=== PATIENT | female | born 1945 | race Caucasian/White ===

== ENCOUNTER 2019-10-09 14:07 | Inpatient (IN) ==
[2019-10-09 18:50] LABS: Basophils # 0.1 10*3/uL (0.0-0.2); Eosinophils # 0.3 10*3/uL (0.0-0.87); Eosinophils % 2.9 % (0.00-10.9); Hematocrit 21.7 VOL% (35.7-47.0); Immature Granulocytes % 0.4 %; Immature Granulocytes Absolute 0.04 #; Lymphocytes # 4.7 10*3/uL (1.4-4.0); Lymphocytes % 43.9 % (21.3-54.2); Mean Corpuscular HGB Conc 28.1 GM/DL (32-36); Mean Corpuscular Volume 86.1 FL (87-102); Mean Platelet Volume 8.9 FL (9.6-12.0); Monocytes % 11.7 % (1.7-12.7); Neutrophils % 40.1 % (38.7-73.9); Platelet Count 349 T/CUMM (130-400); Red Blood Count 2.52 MC/CUMM (3.8-5.5); Red Cell Distribution Width 19.7 % (9.3-17.3); White Blood Count 10.7 T/CUMM (4-12)
[2019-10-09 18:56] LABS: Hemoglobin 6.1 GM/DL (12.0-16.0)
[2019-10-09 19:12] LABS: Albumin 3.1 G/DL (3.4-5.0); Anisocytosis Slight; Bilirubin,Total 0.6 MG/DL (0.2-1.0); Calcium 8.3 MG/DL (8.5-10.1); Eosinophils 3 % (0-10); Hypochromasia 1+; Lymphocytes 39 % (20-55); Osmolality,Calculated 280.3 MOS/KG (273-304); Platelet Estimate Normal; Polychromasia Slight; Segmented Neutrophils 49 % (50-85); Target Cells 1+; Total Cells Counted 100
[2019-10-09 19:13] LABS: Microcytosis Slight; Reactive Lymphocytes 1+
[2019-10-09] MEDS ORDERED: ONDANSETRON 4 MG/2 ML VIAL IV PRN (19:45)
[2019-10-09] MEDS ORDERED: ACETAMINOPHEN 325 MG TABLET PO PRN (19:45)
[2019-10-09] MEDS ORDERED: ACETAMINOPHEN 500 MG TABLET PO ONE ×2 (22:11→22:17)
[2019-10-09] MEDS ORDERED: FUROSEMIDE 20 MG/2 ML VIAL IV ONE (22:11)
[2019-10-09] MEDS ORDERED: diphenhydrAMINE 50 MG/1 ML VIAL IV ONE ×2 (22:13→22:16)
[2019-10-09] MEDS ORDERED: SODIUM CHLORIDE 0.9% 1,000 ML IV PRN (22:48)
[2019-10-10] MEDS ORDERED: diphenhydrAMINE 50 MG/1 ML VIAL IV ONE (05:30)
[2019-10-10] MEDS ORDERED: FUROSEMIDE 20 MG/2 ML VIAL IV ONE (05:30)
[2019-10-10] MEDS ORDERED: ACETAMINOPHEN 500 MG TABLET PO ONE (05:30)
[2019-10-10] MEDS: DEXTROSE 5% NACL 0.45% 1,000 ML IV SCH ×2 (06:07→11:53)
[2019-10-10] MEDS ORDERED: NITROGLYCERIN SL 0.4 MG TABLET SL PRN (06:20)
[2019-10-10] MEDS: LEVOTHYROXINE 100 MCG TABLET PO SCH (07:17)
[2019-10-10] MEDS ORDERED: PANTOPRAZOLE 40 MG VIAL IV SCH (09:00)
[2019-10-10 10:00] LABS: Basophils # 0.1 10*3/uL (0.0-0.2); Basophils % 1.5 % (0.0-0.8); Eosinophils # 0.3 10*3/uL (0.0-0.87); Hematocrit 28.6 VOL% (35.7-47.0); Hemoglobin 8.7 GM/DL (12.0-16.0); Immature Granulocytes % 0.3 %; Immature Granulocytes Absolute 0.02 #; Lymphocytes # 2.6 10*3/uL (1.4-4.0); Mean Corpuscular HGB Conc 30.4 GM/DL (32-36); Mean Corpuscular Volume 86.4 FL (87-102); Mean Platelet Volume 8.9 FL (9.6-12.0); Monocytes % 10.5 % (1.7-12.7); Neutrophils % 44.7 % (38.7-73.9); Platelet Count 294 T/CUMM (130-400); Red Blood Count 3.31 MC/CUMM (3.8-5.5); Red Cell Distribution Width 17.6 % (9.3-17.3); White Blood Count 6.8 T/CUMM (4-12)
[2019-10-10] MEDS: PANTOPRAZOLE 40 MG TABLET PO SCH (10:25)
[2019-10-10 10:29] LABS: Albumin 2.9 G/DL (3.4-5.0); Calcium 8.1 MG/DL (8.5-10.1); Osmolality,Calculated 280.1 MOS/KG (273-304); Total Protein 5.8 G/DL (6.4-8.3)
[2019-10-10] MEDS: SIMVASTATIN 10 MG TABLET PO SCH (21:47)
[2019-10-10] MEDS: SERTRALINE 50 MG TABLET PO SCH (21:47)
[2019-10-11] MEDS: DEXTROSE 5% NACL 0.45% 1,000 ML IV SCH ×4 (00:09→23:05)
[2019-10-11 04:52] LABS: Basophils # 0.1 10*3/uL (0.0-0.2); Basophils % 1.6 % (0.0-0.8); Eosinophils # 0.4 10*3/uL (0.0-0.87); Eosinophils % 7.3 % (0.00-10.9); Hematocrit 26.6 VOL% (35.7-47.0); Hemoglobin 8.1 GM/DL (12.0-16.0); Immature Granulocytes % 0.2 %; Immature Granulocytes Absolute 0.01 #; Lymphocytes # 2.2 10*3/uL (1.4-4.0); Lymphocytes % 39.5 % (21.3-54.2); Mean Corpuscular HGB Conc 30.5 GM/DL (32-36); Mean Corpuscular Volume 85.5 FL (87-102); Mean Platelet Volume 9.1 FL (9.6-12.0); Monocytes % 11.6 % (1.7-12.7); Neutrophils % 39.8 % (38.7-73.9); Platelet Count 290 T/CUMM (130-400); Red Blood Count 3.11 MC/CUMM (3.8-5.5); Red Cell Distribution Width 17.8 % (9.3-17.3); White Blood Count 5.6 T/CUMM (4-12)
[2019-10-11 05:21] LABS: Burr Cells Few; Hypochromasia 2+; Ovalocytes 1+; Platelet Estimate Normal; Polychromasia Few
[2019-10-11] MEDS: LEVOTHYROXINE 100 MCG TABLET PO SCH (05:39)
[2019-10-11 05:46] LABS: Albumin 2.6 G/DL (3.4-5.0); Bilirubin,Total 1.8 MG/DL (0.2-1.0); Calcium 8.2 MG/DL (8.5-10.1); Osmolality,Calculated 280.1 MOS/KG (273-304); Total Protein 5.2 G/DL (6.4-8.3)
[2019-10-11] MEDS: PANTOPRAZOLE 40 MG TABLET PO SCH (10:21)
[2019-10-11] MEDS: SERTRALINE 50 MG TABLET PO SCH (20:58)
[2019-10-11] MEDS: SIMVASTATIN 10 MG TABLET PO SCH (20:58)
[2019-10-11] MEDS ORDERED: SODIUM CHLORIDE 0.9% 1,000 ML IV PRN (21:52)
[2019-10-12] MEDS: LEVOTHYROXINE 100 MCG TABLET PO SCH (05:54)
[2019-10-12] MEDS: DEXTROSE 5% NACL 0.45% 1,000 ML IV SCH ×3 (07:50→23:08)
[2019-10-12] MEDS ORDERED: LIDOCAINE 2% 5 ML VIAL ONE (09:00)
[2019-10-12] MEDS ORDERED: propofoL 200 MG/20 ML VIAL IV ONE (09:00)
[2019-10-12 09:18] LABS: Basophils # 0.1 10*3/uL (0.0-0.2); Basophils % 1.4 % (0.0-0.8); Eosinophils # 0.4 10*3/uL (0.0-0.87); Eosinophils % 5.4 % (0.00-10.9); Hematocrit 35.5 VOL% (35.7-47.0); Hemoglobin 11.3 GM/DL (12.0-16.0); Immature Granulocytes % 0.4 %; Immature Granulocytes Absolute 0.03 #; Lymphocytes # 2.3 10*3/uL (1.4-4.0); Lymphocytes % 32.5 % (21.3-54.2); Mean Corpuscular HGB Conc 31.8 GM/DL (32-36); Mean Corpuscular Volume 84.9 FL (87-102); Mean Platelet Volume 9.1 FL (9.6-12.0); Monocytes % 12.8 % (1.7-12.7); Neutrophils % 47.5 % (38.7-73.9); Platelet Count 304 T/CUMM (130-400); Red Blood Count 4.18 MC/CUMM (3.8-5.5); Red Cell Distribution Width 17.7 % (9.3-17.3); White Blood Count 7.2 T/CUMM (4-12)
[2019-10-12] MEDS: LACTATED RINGERS 1,000 ML IV SCH (10:05)
[2019-10-12] MEDS: FERROUS SULFATE 325 MG TABLET PO SCH (10:27)
[2019-10-12] MEDS: PANTOPRAZOLE 40 MG TABLET PO SCH (10:27)
[2019-10-12 11:51] LABS: Albumin 2.9 G/DL (3.4-5.0); Bilirubin,Total 2.2 MG/DL (0.2-1.0); Calcium 8.2 MG/DL (8.5-10.1); Osmolality,Calculated 278.1 MOS/KG (273-304); Total Protein 5.9 G/DL (6.4-8.3)
[2019-10-12] MEDS ORDERED: BISACODYL 5 MG TABLET PO ONE (12:00)
[2019-10-12] MEDS ORDERED: POLYETHYLENE GLYCOL POWDER 255 GM BOTTLE PO ONE (18:00)
[2019-10-12] MEDS: SIMVASTATIN 10 MG TABLET PO SCH (23:09)
[2019-10-12] MEDS: SERTRALINE 50 MG TABLET PO SCH (23:09)
[2019-10-13] MEDS: DEXTROSE 5% NACL 0.45% 1,000 ML IV SCH ×2 (05:35→13:23)
[2019-10-13] MEDS: LEVOTHYROXINE 100 MCG TABLET PO SCH (05:35)
[2019-10-13 06:09] LABS: Basophils # 0.1 10*3/uL (0.0-0.2); Basophils % 1.3 % (0.0-0.8); Eosinophils # 0.4 10*3/uL (0.0-0.87); Hematocrit 30.1 VOL% (35.7-47.0); Hemoglobin 8.6 GM/DL (12.0-16.0); Immature Granulocytes % 0.4 %; Immature Granulocytes Absolute 0.02 #; Lymphocytes # 1.9 10*3/uL (1.4-4.0); Lymphocytes % 35.3 % (21.3-54.2); Mean Corpuscular HGB Conc 28.6 GM/DL (32-36); Mean Corpuscular Volume 95.3 FL (87-102); Mean Platelet Volume 9.6 FL (9.6-12.0); Monocytes % 12.2 % (1.7-12.7); Neutrophils % 43.8 % (38.7-73.9); Platelet Count 239 T/CUMM (130-400); Red Blood Count 3.16 MC/CUMM (3.8-5.5); Red Cell Distribution Width 19.5 % (9.3-17.3); White Blood Count 5.3 T/CUMM (4-12)
[2019-10-13 06:13] LABS: Anisocytosis 1+; Microcytosis 1+
[2019-10-13 06:14] LABS: Acanthocytes Few; Hypochromasia 1+; Ovalocytes Slight; Platelet Estimate Normal; Polychromasia Slight
[2019-10-13 08:22] LABS: Calcium 8.3 MG/DL (8.5-10.1); Osmolality,Calculated 277.3 MOS/KG (273-304)
[2019-10-13] MEDS ORDERED: propofoL 200 MG/20 ML VIAL IV ONE (09:00)
[2019-10-13] MEDS ORDERED: LIDOCAINE 2% 5 ML VIAL ONE (09:00)
[2019-10-13] MEDS: PANTOPRAZOLE 40 MG TABLET PO SCH (09:13)
[2019-10-13] MEDS: FERROUS SULFATE 325 MG TABLET PO SCH (09:13)
[2019-10-13] MEDS: LACTATED RINGERS 1,000 ML IV SCH (09:30)
[2019-10-13 16:00] VITALS: BP 137/59
== END 2019-10-13 18:00 | disposition home or self-care (01) | DRG 378 ==
LOC: N.EDINP 14:07 → N.ED 14:07 → N.3E 20:21
PROVIDERS: ADMIT Family Medicine; ATTEND Family Medicine

== ENCOUNTER 2020-09-03 12:27 | Inpatient (IN) ==
[2020-09-03] MEDS ORDERED: SODIUM CHLORIDE 0.9% 500 ML IV STA (12:52)
[2020-09-03] MEDS ORDERED: THIAMINE 200 MG/2 ML VIAL IV STA (12:52)
[2020-09-03 13:12] LABS: Basophils # 0.1 10*3/uL (0.0-0.2); Basophils % 1.5 % (0.0-0.8); Eosinophils # 0.1 10*3/uL (0.0-0.87); Eosinophils % 1.2 % (0.00-10.9); Hematocrit 29.6 VOL% (35.7-47.0); Hemoglobin 9.4 GM/DL (12.0-16.0); Immature Granulocytes % 0.3 %; Immature Granulocytes Absolute 0.02 #; Lymphocytes # 1.7 10*3/uL (1.4-4.0); Lymphocytes % 28.3 % (21.3-54.2); Mean Corpuscular HGB Conc 31.8 GM/DL (32-36); Mean Corpuscular Volume 96.7 FL (87-102); Mean Platelet Volume 8.7 FL (9.6-12.0); Monocytes % 14.3 % (1.7-12.7); Neutrophils % 54.4 % (38.7-73.9); Platelet Count 271 T/CUMM (130-400); Red Blood Count 3.06 MC/CUMM (3.8-5.5); Red Cell Distribution Width 19.4 % (9.3-17.3)
[2020-09-03 13:23] LABS: INR 1.3; PT Patient Result 14.6 SECS (9.8-11.9); Partial Thromboplastin Time 30.7 SECS (23.9-33.8)
[2020-09-03 13:41] LABS: Lymphocytes 21 % (20-55); Platelet Estimate Adequate; Segmented Neutrophils 69 % (50-85); Total Cells Counted 100
[2020-09-03 13:46] LABS: Prolactin 10.9 NG/ML
[2020-09-03] MEDS ORDERED: PANTOPRAZOLE 40 MG VIAL IV STA (13:54)
[2020-09-03 14:03] LABS: Albumin 3.1 G/DL (3.4-5.0); Bilirubin,Total 1.3 MG/DL (0.2-1.0); Calcium 8.8 MG/DL (8.5-10.1); Osmolality,Calculated 276.7 MOS/KG (273-304); Total Protein 5.9 G/DL (6.4-8.2)
[2020-09-03] MEDS ORDERED: ACETAMINOPHEN 325 MG TABLET PO PRN (14:08)
[2020-09-03] MEDS ORDERED: ONDANSETRON 4 MG/2 ML VIAL IV PRN (14:08)
[2020-09-03] MEDS ORDERED: LACTULOSE 20 GM/30 ML UDCUP PO PRN (14:13)
[2020-09-03] MEDS ORDERED: NITROGLYCERIN SL 0.4 MG TABLET SL PRN (14:13)
[2020-09-03] MEDS ORDERED: FUROSEMIDE 20 MG TABLET PO PRN (14:13)
[2020-09-03 14:45] LABS: Bilirubin,Urine Negative (Negative); Blood, Urine Negative (Negative); Glucose,Urine (UA) Negative (Negative); Ketones,Urine 5 mg/dL (Negative); Mucus,Urine Moderate /LPF (Occasional); Nitrite,Urine Negative (Negative); Protein,Urine Negative; RBC,Urine 1 /HPF (0-4); Squamous Epithelial Cell,Urine Many /HPF (0-10); Urine Appearance CLOUDY (Clear); Urine Color Yellow (Yellow); Urine Specific Gravity 1.015 (1.001-1.035)
[2020-09-03] MEDS: cefTRIAXone 1,000 MG in SODIUM CHLORIDE 0.9% 100 ML IV SCH (18:27)
[2020-09-03] MEDS: SODIUM CHLORIDE 0.9% 1,000 ML IV SCH (18:28)
[2020-09-03] MEDS: SIMVASTATIN 10 MG TABLET PO SCH (20:23)
[2020-09-03] MEDS: SERTRALINE 25 MG TABLET PO SCH (20:23)
[2020-09-03] MEDS: SPIRONOLACTONE 50 MG TABLET PO SCH (20:23)
[2020-09-04] MEDS: SODIUM CHLORIDE 0.9% 1,000 ML IV SCH ×3 (01:50→17:18)
[2020-09-04 05:48] LABS: Basophils # 0.1 10*3/uL (0.0-0.2); Basophils % 1.5 % (0.0-0.8); Eosinophils # 0.2 10*3/uL (0.0-0.87); Eosinophils % 4.6 % (0.00-10.9); Hematocrit 26.3 VOL% (35.7-47.0); Hemoglobin 8.1 GM/DL (12.0-16.0); Immature Granulocytes % 0.2 %; Immature Granulocytes Absolute 0.01 #; Lymphocytes # 2.2 10*3/uL (1.4-4.0); Lymphocytes % 41.4 % (21.3-54.2); Mean Corpuscular HGB Conc 30.8 GM/DL (32-36); Mean Platelet Volume 9.2 FL (9.6-12.0); Monocytes % 16.2 % (1.7-12.7); Neutrophils % 36.1 % (38.7-73.9); Platelet Count 222 T/CUMM (130-400); Red Blood Count 2.63 MC/CUMM (3.8-5.5); Red Cell Distribution Width 19.8 % (9.3-17.3); White Blood Count 5.3 T/CUMM (4-12)
[2020-09-04 06:07] LABS: Calcium 7.9 MG/DL (8.5-10.1); Osmolality,Calculated 277.4 MOS/KG (273-304)
[2020-09-04] MEDS ORDERED: LEVOTHYROXINE 100 MCG TABLET PO SCH (06:30)
[2020-09-04 08:51] LABS: Band Neutrophils 2 % (0-10); Eosinophils 6 % (0-10); Lymphocytes 43 % (20-55); Segmented Neutrophils 31 % (50-85); Total Cells Counted 100
[2020-09-04 08:52] LABS: Platelet Estimate Normal; Reactive Lymphocytes 2+
[2020-09-04 09:14] LABS: Albumin 2.6 G/DL (3.4-5.0); Bilirubin,Direct 0.25 MG/DL (0.0-0.20); Bilirubin,Indirect 0.4 MG/DL (0.0-1.0); Bilirubin,Total 0.6 MG/DL (0.2-1.0); Total Protein 4.9 G/DL (6.4-8.2)
[2020-09-04 09:20] LABS: Thyroid Stimulating Hormone 0.755 uIU/ml (0.358-3.74)
[2020-09-04] MEDS: FERROUS SULFATE 325 MG TABLET PO SCH (09:48)
[2020-09-04] MEDS: PANTOPRAZOLE 40 MG VIAL IV SCH (09:48)
[2020-09-04] MEDS: SPIRONOLACTONE 50 MG TABLET PO SCH ×2 (09:48→20:34)
[2020-09-04] MEDS: CHOLECALCIFEROL 1,000 UNIT TABLET PO SCH (09:48)
[2020-09-04] MEDS: cefTRIAXone 1,000 MG in SODIUM CHLORIDE 0.9% 100 ML IV SCH (15:09)
[2020-09-04] MEDS ORDERED: LACTULOSE 20 GM/30 ML UDCUP PO ONE (15:56)
[2020-09-04] MEDS: SERTRALINE 25 MG TABLET PO SCH (20:34)
[2020-09-04] MEDS: SIMVASTATIN 10 MG TABLET PO SCH (20:34)
[2020-09-04] MEDS ORDERED: LACTULOSE 20 GM/30 ML UDCUP PO SCH (21:00)
[2020-09-05 05:50] LABS: Hematocrit 28.1 VOL% (35.7-47.0); Hemoglobin 9.1 GM/DL (12.0-16.0)
[2020-09-05] MEDS: LEVOTHYROXINE 75 MCG TABLET PO SCH (06:30)
[2020-09-05] MEDS: FERROUS SULFATE 325 MG TABLET PO SCH (08:09)
[2020-09-05] MEDS: SPIRONOLACTONE 50 MG TABLET PO SCH ×2 (08:10→21:20)
[2020-09-05] MEDS: PANTOPRAZOLE 40 MG VIAL IV SCH (08:10)
[2020-09-05] MEDS: CHOLECALCIFEROL 1,000 UNIT TABLET PO SCH (08:10)
[2020-09-05] MEDS: SODIUM CHLORIDE 0.9% 1,000 ML IV SCH ×2 (08:10→15:45)
[2020-09-05] MEDS: LACTULOSE 20 GM/30 ML UDCUP PO SCH ×3 (12:56→23:47)
[2020-09-05] MEDS: cefTRIAXone 1,000 MG in SODIUM CHLORIDE 0.9% 100 ML IV SCH (15:36)
[2020-09-05] MEDS: SIMVASTATIN 10 MG TABLET PO SCH (21:20)
[2020-09-05] MEDS: SERTRALINE 25 MG TABLET PO SCH (21:20)
[2020-09-06] MEDS: SODIUM CHLORIDE 0.9% 1,000 ML IV SCH ×3 (03:58→23:31)
[2020-09-06] MEDS: LACTULOSE 20 GM/30 ML UDCUP PO SCH ×4 (05:38→23:31)
[2020-09-06] MEDS: LEVOTHYROXINE 75 MCG TABLET PO SCH (05:38)
[2020-09-06 07:05] LABS: Basophils # 0.1 10*3/uL (0.0-0.2); Eosinophils # 0.3 10*3/uL (0.0-0.87); Eosinophils % 4.3 % (0.00-10.9); Hematocrit 23.7 VOL% (35.7-47.0); Hemoglobin 7.5 GM/DL (12.0-16.0); Immature Granulocytes % 0.3 %; Immature Granulocytes Absolute 0.02 #; Lymphocytes # 2.4 10*3/uL (1.4-4.0); Lymphocytes % 33.3 % (21.3-54.2); Mean Corpuscular HGB Conc 31.6 GM/DL (32-36); Mean Corpuscular Volume 99.6 FL (87-102); Mean Platelet Volume 9.3 FL (9.6-12.0); Neutrophils % 46.1 % (38.7-73.9); Platelet Count 218 T/CUMM (130-400); Red Blood Count 2.38 MC/CUMM (3.8-5.5); Red Cell Distribution Width 19.8 % (9.3-17.3); White Blood Count 7.3 T/CUMM (4-12)
[2020-09-06 07:23] LABS: Hypochromasia Slight
[2020-09-06 07:24] LABS: Microcytosis 1+; Ovalocytes Slight; Platelet Estimate Normal; Polychromasia Slight
[2020-09-06] MEDS: PANTOPRAZOLE 40 MG TABLET PO SCH (09:18)
[2020-09-06] MEDS: CHOLECALCIFEROL 1,000 UNIT TABLET PO SCH (09:18)
[2020-09-06] MEDS: SPIRONOLACTONE 50 MG TABLET PO SCH ×2 (09:18→22:22)
[2020-09-06] MEDS: FERROUS SULFATE 325 MG TABLET PO SCH (09:18)
[2020-09-06] MEDS ORDERED: SODIUM CHLORIDE 0.9% 1,000 ML IV PRN (13:28)
[2020-09-06] MEDS: cefTRIAXone 1,000 MG in SODIUM CHLORIDE 0.9% 100 ML IV SCH (15:13)
[2020-09-06 19:55] LABS: Hematocrit 31.6 VOL% (35.7-47.0)
[2020-09-06 20:02] LABS: Hemoglobin 9.7 GM/DL (12.0-16.0)
[2020-09-06] MEDS: SIMVASTATIN 10 MG TABLET PO SCH (22:23)
[2020-09-06] MEDS: SERTRALINE 25 MG TABLET PO SCH (22:23)
[2020-09-07] MEDS: LACTULOSE 20 GM/30 ML UDCUP PO SCH ×3 (05:02→21:15)
[2020-09-07] MEDS: LEVOTHYROXINE 75 MCG TABLET PO SCH (05:38)
[2020-09-07 08:30] LABS: Basophils # 0.1 10*3/uL (0.0-0.2); Basophils % 0.8 % (0.0-0.8); Eosinophils # 0.3 10*3/uL (0.0-0.87); Eosinophils % 3.8 % (0.00-10.9); Hematocrit 33.3 VOL% (35.7-47.0); Hemoglobin 10.5 GM/DL (12.0-16.0); Immature Granulocytes % 0.4 %; Immature Granulocytes Absolute 0.03 #; Lymphocytes # 2.8 10*3/uL (1.4-4.0); Lymphocytes % 33.5 % (21.3-54.2); Mean Corpuscular HGB Conc 31.5 GM/DL (32-36); Mean Corpuscular Volume 96.2 FL (87-102); Monocytes % 12.7 % (1.7-12.7); Neutrophils % 48.8 % (38.7-73.9); Platelet Count 256 T/CUMM (130-400); Red Blood Count 3.46 MC/CUMM (3.8-5.5); Red Cell Distribution Width 21.9 % (9.3-17.3); White Blood Count 8.4 T/CUMM (4-12)
[2020-09-07 08:51] LABS: Atypical Lymphocytes Few; Eosinophils 5 % (0-10); Hypochromasia 1+; Lymphocytes 35 % (20-55); Microcytosis 1+; Segmented Neutrophils 53 % (50-85); Total Cells Counted 100
[2020-09-07 08:52] LABS: Ovalocytes Slight; Polychromasia Slight
[2020-09-07 08:53] LABS: Platelet Estimate Normal
[2020-09-07] MEDS: CHOLECALCIFEROL 1,000 UNIT TABLET PO SCH (08:55)
[2020-09-07] MEDS: SPIRONOLACTONE 50 MG TABLET PO SCH ×2 (08:55→21:15)
[2020-09-07] MEDS: FERROUS SULFATE 325 MG TABLET PO SCH (08:55)
[2020-09-07] MEDS: PANTOPRAZOLE 40 MG TABLET PO SCH (08:55)
[2020-09-07] MEDS: SODIUM CHLORIDE 0.9% 1,000 ML IV SCH ×2 (09:35→18:53)
[2020-09-07] MEDS ORDERED: DICYCLOMINE 20 MG TABLET PO PRN (13:59)
[2020-09-07] MEDS: cefTRIAXone 1,000 MG in SODIUM CHLORIDE 0.9% 100 ML IV SCH (15:17)
[2020-09-07] MEDS: SIMVASTATIN 10 MG TABLET PO SCH (21:01)
[2020-09-07] MEDS: SERTRALINE 25 MG TABLET PO SCH (21:01)
[2020-09-08] MEDS: SODIUM CHLORIDE 0.9% 1,000 ML IV SCH (02:18)
[2020-09-08] MEDS: LEVOTHYROXINE 75 MCG TABLET PO SCH (05:54)
[2020-09-08] MEDS: SPIRONOLACTONE 50 MG TABLET PO SCH (09:42)
[2020-09-08] MEDS: PANTOPRAZOLE 40 MG TABLET PO SCH (09:43)
[2020-09-08] MEDS: FERROUS SULFATE 325 MG TABLET PO SCH (09:43)
[2020-09-08] MEDS: CHOLECALCIFEROL 1,000 UNIT TABLET PO SCH (09:44)
[2020-09-08] MEDS: LACTULOSE 20 GM/30 ML UDCUP PO SCH (09:51)
[2020-09-08 11:13] VITALS: BP 122/41
[2020-09-08 14:07] LABS: Basophils # 0.1 10*3/uL (0.0-0.2); Basophils % 1.1 % (0.0-0.8); Eosinophils # 0.3 10*3/uL (0.0-0.87); Hematocrit 32.8 VOL% (35.7-47.0); Hemoglobin 10.2 GM/DL (12.0-16.0); Immature Granulocytes % 0.4 %; Immature Granulocytes Absolute 0.03 #; Lymphocytes # 2.1 10*3/uL (1.4-4.0); Lymphocytes % 25.4 % (21.3-54.2); Mean Corpuscular HGB Conc 31.1 GM/DL (32-36); Mean Corpuscular Volume 97.6 FL (87-102); Mean Platelet Volume 8.6 FL (9.6-12.0); Monocytes % 11.7 % (1.7-12.7); Neutrophils % 57.4 % (38.7-73.9); Platelet Count 262 T/CUMM (130-400); Red Blood Count 3.36 MC/CUMM (3.8-5.5); Red Cell Distribution Width 22.1 % (9.3-17.3); White Blood Count 8.3 T/CUMM (4-12)
[2020-09-08 14:38] LABS: Burr Cells Few; Eosinophils 4 % (0-10); Hypochromasia 1+; Lymphocytes 28 % (20-55); Microcytosis Slight; Platelet Estimate Normal; Reactive Lymphocytes Few; Segmented Neutrophils 60 % (50-85); Total Cells Counted 100
[2020-09-19] MEDS ORDERED: CYANOCOBALAMIN 1000 MCG/1 ML VIAL IM SCH (09:00)
== END 2020-09-08 14:47 | disposition home or self-care (01) | DRG 442 ==
LOC: N.ED 12:27 → N.EDINP 14:08 → N.3E 16:34
PROVIDERS: ADMIT Family Medicine; ATTEND Family Medicine

== ENCOUNTER 2020-11-26 18:04 | Inpatient (IN) ==
[2020-11-26 20:29] LABS: Basophils # 0.1 10*3/uL (0.0-0.2); Basophils % 0.5 % (0.0-0.8); Eosinophils % 0.1 % (0.00-10.9); Hematocrit 29.1 VOL% (35.7-47.0); Hemoglobin 9.2 GM/DL (12.0-16.0); Immature Granulocytes % 0.6 %; Immature Granulocytes Absolute 0.08 #; Lymphocytes # 2.6 10*3/uL (1.4-4.0); Lymphocytes % 19.2 % (21.3-54.2); Mean Corpuscular HGB Conc 31.6 GM/DL (32-36); Mean Corpuscular Volume 91.2 FL (87-102); Mean Platelet Volume 8.6 FL (9.6-12.0); Monocytes % 15.5 % (1.7-12.7); Neutrophils % 64.1 % (38.7-73.9); Platelet Count 348 T/CUMM (130-400); Red Blood Count 3.19 MC/CUMM (3.8-5.5); Red Cell Distribution Width 14.8 % (9.3-17.3); White Blood Count 13.3 T/CUMM (4-12)
[2020-11-26 21:02] LABS: INR 1.2; PT Patient Result 13.6 SECS (10.5-12.0); Partial Thromboplastin Time 25.5 SECS (23.9-33.8)
[2020-11-26 21:23] LABS: Albumin 1.6 G/DL (3.4-5.0); Bilirubin,Total 0.9 MG/DL (0.20-1.00); Osmolality,Calculated 271.8 MOS/KG (273-304); Potassium 3.9 MMOL/L (3.5-5.1); Total Protein 3.9 G/DL (6.4-8.2)
[2020-11-26 21:26] LABS: Calcium 5.5 MG/DL (8.5-10.1)
[2020-11-26] MEDS ORDERED: CALCIUM GLUCONATE 1,000 MG in SODIUM CHLORIDE 0.9% 100 ML IV ONE (21:48)
[2020-11-26 23:09] LABS: Bilirubin,Urine Negative (Negative); Blood, Urine Negative (Negative); Glucose,Urine (UA) Negative (Negative); Hyaline Casts,Urine 4 /LPF (0-3); Ketones,Urine Negative (Negative); Mucus,Urine Many /LPF (Occasional); Nitrite,Urine Negative (Negative); Protein,Urine Negative; Squamous Epithelial Cell,Urine Occasional /HPF (0-10); Urine Appearance Slightly Hazy (Clear); Urine Color Amber (Yellow); Urine Specific Gravity 1.024 (1.001-1.035)
[2020-11-27] MEDS: SODIUM CHLORIDE 0.9% 1,000 ML IV SCH ×3 (03:15→21:30)
[2020-11-27 08:36] LABS: Basophils # 0.1 10*3/uL (0.0-0.2); Basophils % 0.5 % (0.0-0.8); Eosinophils % 0.2 % (0.00-10.9); Hematocrit 27.4 VOL% (35.7-47.0); Hemoglobin 8.8 GM/DL (12.0-16.0); Immature Granulocytes % 0.4 %; Immature Granulocytes Absolute 0.05 #; Lymphocytes # 2.8 10*3/uL (1.4-4.0); Lymphocytes % 22.3 % (21.3-54.2); Mean Corpuscular HGB Conc 32.1 GM/DL (32-36); Mean Corpuscular Volume 89.8 FL (87-102); Mean Platelet Volume 8.5 FL (9.6-12.0); Monocytes % 13.5 % (1.7-12.7); Neutrophils % 63.1 % (38.7-73.9); Platelet Count 365 T/CUMM (130-400); Red Blood Count 3.05 MC/CUMM (3.8-5.5); Red Cell Distribution Width 14.9 % (9.3-17.3); White Blood Count 12.6 T/CUMM (4-12)
[2020-11-27 08:57] LABS: Albumin 2.4 G/DL (3.4-5.0); Bilirubin,Total 1.6 MG/DL (0.20-1.00); Calcium 7.8 MG/DL (8.5-10.1); Osmolality,Calculated 260.8 MOS/KG (273-304); Potassium 3.9 MMOL/L (3.5-5.1); Total Protein 5.6 G/DL (6.4-8.2)
[2020-11-27] MEDS: PANTOPRAZOLE 40 MG TABLET PO SCH (09:58)
[2020-11-27] MEDS: LACTULOSE 20 GM/30 ML UDCUP PO SCH ×4 (09:58→21:34)
[2020-11-27] MEDS ORDERED: ACETAMINOPHEN 325 MG TABLET PO PRN (11:51)
[2020-11-27] MEDS: ONDANSETRON 4 MG/2 ML VIAL IV PRN (14:04)
[2020-11-27] MEDS: THIAMINE 100 MG TABLET PO SCH (21:30)
[2020-11-27] MEDS: ZINC SULFATE 220 MG CAPSULE PO SCH (21:30)
[2020-11-27] MEDS: SERTRALINE 25 MG TABLET PO SCH (21:30)
[2020-11-28] MEDS: SODIUM CHLORIDE 0.9% 1,000 ML IV SCH ×2 (02:30→10:49)
[2020-11-28 05:18] LABS: Basophils # 0.1 10*3/uL (0.0-0.2); Basophils % 0.5 % (0.0-0.8); Eosinophils # 0.1 10*3/uL (0.0-0.87); Eosinophils % 0.7 % (0.00-10.9); Hematocrit 24.6 VOL% (35.7-47.0); Hemoglobin 8.2 GM/DL (12.0-16.0); Immature Granulocytes % 0.4 %; Immature Granulocytes Absolute 0.04 #; Lymphocytes # 2.7 10*3/uL (1.4-4.0); Lymphocytes % 25.6 % (21.3-54.2); Mean Corpuscular HGB Conc 33.3 GM/DL (32-36); Mean Corpuscular Volume 88.8 FL (87-102); Mean Platelet Volume 8.7 FL (9.6-12.0); Neutrophils % 56.8 % (38.7-73.9); Platelet Count 325 T/CUMM (130-400); Red Blood Count 2.77 MC/CUMM (3.8-5.5); Red Cell Distribution Width 14.8 % (9.3-17.3); White Blood Count 10.5 T/CUMM (4-12)
[2020-11-28 05:42] LABS: Eosinophils 2 % (0-10); Lymphocytes 16 % (20-55); Segmented Neutrophils 70 % (50-85); Total Cells Counted 100
[2020-11-28 05:43] LABS: Hypochromasia 1+; Microcytosis 1+; Platelet Estimate Adequate
[2020-11-28 05:54] LABS: Albumin 2.2 G/DL (3.4-5.0); Bilirubin,Direct 0.39 MG/DL (0.0-0.20); Bilirubin,Indirect 0.7 MG/DL (0.0-1.0); Bilirubin,Total 1.1 MG/DL (0.20-1.00); Calcium 7.7 MG/DL (8.5-10.1); Osmolality,Calculated 264.5 MOS/KG (273-304); Potassium 3.1 MMOL/L (3.5-5.1); Total Protein 5.3 G/DL (6.4-8.2)
[2020-11-28] MEDS ORDERED: SPIRONOLACTONE 50 MG TABLET PO SCH (09:00)
[2020-11-28] MEDS: FUROSEMIDE 20 MG TABLET PO SCH (09:47)
[2020-11-28] MEDS: SPIRONOLACTONE 25 MG TABLET PO SCH ×2 (09:48→20:48)
[2020-11-28] MEDS: LEVOTHYROXINE 100 MCG TABLET PO SCH (09:48)
[2020-11-28] MEDS: THIAMINE 100 MG TABLET PO SCH ×2 (09:48→20:49)
[2020-11-28] MEDS: ZINC SULFATE 220 MG CAPSULE PO SCH ×2 (09:48→20:49)
[2020-11-28] MEDS: LACTULOSE 20 GM/30 ML UDCUP PO SCH ×4 (09:49→20:50)
[2020-11-28] MEDS: FERROUS SULFATE 325 MG TABLET PO SCH (09:49)
[2020-11-28] MEDS: PANTOPRAZOLE 40 MG TABLET PO SCH (09:51)
[2020-11-28] MEDS: SERTRALINE 25 MG TABLET PO SCH (20:49)
[2020-11-29] MEDS: SODIUM CHLORIDE 0.9% 1,000 ML IV SCH ×2 (02:33→12:17)
[2020-11-29 04:34] LABS: Basophils # 0.1 10*3/uL (0.0-0.2); Basophils % 0.5 % (0.0-0.8); Eosinophils # 0.1 10*3/uL (0.0-0.87); Hematocrit 23.8 VOL% (35.7-47.0); Hemoglobin 7.6 GM/DL (12.0-16.0); Immature Granulocytes % 0.7 %; Immature Granulocytes Absolute 0.07 #; Lymphocytes # 2.7 10*3/uL (1.4-4.0); Lymphocytes % 25.7 % (21.3-54.2); Mean Corpuscular HGB Conc 31.9 GM/DL (32-36); Mean Corpuscular Volume 90.5 FL (87-102); Mean Platelet Volume 8.7 FL (9.6-12.0); Neutrophils % 58.1 % (38.7-73.9); Platelet Count 265 T/CUMM (130-400); Red Blood Count 2.63 MC/CUMM (3.8-5.5); Red Cell Distribution Width 14.8 % (9.3-17.3); White Blood Count 10.7 T/CUMM (4-12)
[2020-11-29] MEDS: LEVOTHYROXINE 100 MCG TABLET PO SCH (07:45)
[2020-11-29] MEDS ORDERED: SODIUM CHLORIDE 0.9% 1,000 ML IV PRN (08:09)
[2020-11-29 08:42] LABS: INR 1.4; PT Patient Result 15.1 SECS (10.5-12.0); Partial Thromboplastin Time 31.3 SECS (23.9-33.8)
[2020-11-29] MEDS: PANTOPRAZOLE 40 MG TABLET PO SCH (09:38)
[2020-11-29] MEDS: THIAMINE 100 MG TABLET PO SCH ×2 (09:38→22:03)
[2020-11-29] MEDS: ZINC SULFATE 220 MG CAPSULE PO SCH ×2 (09:38→22:03)
[2020-11-29] MEDS: FUROSEMIDE 20 MG TABLET PO SCH (09:38)
[2020-11-29] MEDS: FERROUS SULFATE 325 MG TABLET PO SCH (09:39)
[2020-11-29] MEDS: SPIRONOLACTONE 25 MG TABLET PO SCH (09:39)
[2020-11-29] MEDS: LACTULOSE 20 GM/30 ML UDCUP PO SCH ×3 (09:42→22:04)
[2020-11-29] MEDS: SPIRONOLACTONE 50 MG TABLET PO SCH ×2 (09:46→22:04)
[2020-11-29] MEDS: SERTRALINE 25 MG TABLET PO SCH (22:03)
[2020-11-29] MEDS: NITROGLYCERIN SL 0.4 MG TABLET SL PRN ×3 (22:53→23:21)
[2020-11-30] MEDS: SODIUM CHLORIDE 0.9% 1,000 ML IV SCH ×2 (00:05→14:46)
[2020-11-30 05:55] LABS: Calcium 7.3 MG/DL (8.5-10.1); Osmolality,Calculated 257.9 MOS/KG (273-304); Potassium 3.4 MMOL/L (3.5-5.1)
[2020-11-30] MEDS: LEVOTHYROXINE 100 MCG TABLET PO SCH (06:41)
[2020-11-30 07:34] LABS: Basophils # 0.1 10*3/uL (0.0-0.2); Basophils % 0.5 % (0.0-0.8); Eosinophils # 0.1 10*3/uL (0.0-0.87); Eosinophils % 0.9 % (0.00-10.9); Hematocrit 32.2 VOL% (35.7-47.0); Immature Granulocytes Absolute 0.14 #; Lymphocytes # 3.5 10*3/uL (1.4-4.0); Lymphocytes % 23.9 % (21.3-54.2); Mean Corpuscular HGB Conc 33.2 GM/DL (32-36); Mean Corpuscular Volume 88.5 FL (87-102); Mean Platelet Volume 8.5 FL (9.6-12.0); Monocytes % 11.2 % (1.7-12.7); Neutrophils % 62.5 % (38.7-73.9); Platelet Count 213 T/CUMM (130-400); Red Cell Distribution Width 15.2 % (9.3-17.3)
[2020-11-30 07:35] LABS: Hemoglobin 10.7 GM/DL (12.0-16.0); Red Blood Count 3.64 MC/CUMM (3.8-5.5); White Blood Count 14.5 T/CUMM (4-12)
[2020-11-30] MEDS: FUROSEMIDE 20 MG TABLET PO SCH (08:02)
[2020-11-30] MEDS: PANTOPRAZOLE 40 MG TABLET PO SCH (08:02)
[2020-11-30] MEDS: SPIRONOLACTONE 50 MG TABLET PO SCH ×2 (08:02→22:43)
[2020-11-30] MEDS: THIAMINE 100 MG TABLET PO SCH ×2 (08:02→22:44)
[2020-11-30] MEDS: FERROUS SULFATE 325 MG TABLET PO SCH (08:02)
[2020-11-30] MEDS: ZINC SULFATE 220 MG CAPSULE PO SCH ×2 (08:02→22:43)
[2020-11-30] MEDS: LACTULOSE 20 GM/30 ML UDCUP PO SCH ×2 (08:03→22:44)
[2020-11-30] MEDS: POTASSIUM CHLORIDE 20 MEQ TABLET PO PRN ×3 (08:03→14:46)
[2020-11-30 08:06] LABS: Albumin 2.1 G/DL (3.4-5.0); Bilirubin,Direct 0.84 MG/DL (0.0-0.20); Bilirubin,Indirect 2.5 MG/DL (0.0-1.0); Bilirubin,Total 3.3 MG/DL (0.20-1.00); Total Protein 5.3 G/DL (6.4-8.2)
[2020-11-30] MEDS: ONDANSETRON 4 MG/2 ML VIAL IV PRN (09:51)
[2020-11-30] MEDS: SERTRALINE 25 MG TABLET PO SCH (22:43)
[2020-12-01] MEDS: SODIUM CHLORIDE 0.9% 1,000 ML IV SCH ×2 (00:12→18:12)
[2020-12-01 06:40] LABS: Basophils # 0.1 10*3/uL (0.0-0.2); Basophils % 0.4 % (0.0-0.8); Eosinophils # 0.1 10*3/uL (0.0-0.87); Hematocrit 31.9 VOL% (35.7-47.0); Hemoglobin 10.5 GM/DL (12.0-16.0); Immature Granulocytes % 0.7 %; Lymphocytes # 2.5 10*3/uL (1.4-4.0); Mean Corpuscular HGB Conc 32.9 GM/DL (32-36); Mean Corpuscular Volume 89.4 FL (87-102); Mean Platelet Volume 8.7 FL (9.6-12.0); Monocytes % 12.5 % (1.7-12.7); Neutrophils % 67.4 % (38.7-73.9); Platelet Count 193 T/CUMM (130-400); Red Blood Count 3.57 MC/CUMM (3.8-5.5); Red Cell Distribution Width 15.3 % (9.3-17.3); White Blood Count 13.9 T/CUMM (4-12)
[2020-12-01] MEDS: ZINC SULFATE 220 MG CAPSULE PO SCH ×2 (08:22→22:39)
[2020-12-01] MEDS: LEVOTHYROXINE 100 MCG TABLET PO SCH (08:22)
[2020-12-01] MEDS: PANTOPRAZOLE 40 MG TABLET PO SCH (08:22)
[2020-12-01] MEDS: THIAMINE 100 MG TABLET PO SCH ×2 (08:22→22:40)
[2020-12-01] MEDS: FERROUS SULFATE 325 MG TABLET PO SCH (08:23)
[2020-12-01] MEDS: LACTULOSE 20 GM/30 ML UDCUP PO SCH ×4 (08:23→22:40)
[2020-12-01] MEDS: FUROSEMIDE 20 MG TABLET PO SCH (08:34)
[2020-12-01] MEDS: SPIRONOLACTONE 50 MG TABLET PO SCH ×2 (08:34→22:39)
[2020-12-01] MEDS: SERTRALINE 25 MG TABLET PO SCH (22:39)
[2020-12-02] MEDS: LEVOTHYROXINE 112 MCG TABLET PO SCH (06:50)
[2020-12-02 09:14] LABS: Bacteria,Urine Many /HPF (Few); Bilirubin,Urine Negative (Negative); Blood, Urine Small mg/dL (Negative); Glucose,Urine (UA) Negative (Negative); Hyaline Casts,Urine 14 /LPF (0-3); Ketones,Urine Negative (Negative); Mucus,Urine Many /LPF (Occasional); Nitrite,Urine Positive (Negative); Protein,Urine 30 MG/DL; RBC,Urine 9 /HPF (0-4); Squamous Epithelial Cell,Urine Occasional /HPF (0-10); Urine Appearance Slightly Hazy (Clear); Urine Color Amber (Yellow); Urine Specific Gravity 1.021 (1.001-1.035); Urine Urobilinogen < 2.0 EU/DL (0.2-1.0)
[2020-12-02] MEDS: SPIRONOLACTONE 50 MG TABLET PO SCH ×2 (10:00→21:40)
[2020-12-02] MEDS: FUROSEMIDE 20 MG TABLET PO SCH (10:01)
[2020-12-02] MEDS: THIAMINE 100 MG TABLET PO SCH ×2 (10:04→21:40)
[2020-12-02] MEDS: PANTOPRAZOLE 40 MG TABLET PO SCH (10:04)
[2020-12-02] MEDS: ZINC SULFATE 220 MG CAPSULE PO SCH ×2 (10:05→21:40)
[2020-12-02] MEDS: FERROUS SULFATE 325 MG TABLET PO SCH (10:06)
[2020-12-02] MEDS: LACTULOSE 20 GM/30 ML UDCUP PO SCH ×3 (10:10→21:39)
[2020-12-02] MEDS: SODIUM CHLORIDE 0.9% 1,000 ML IV SCH ×2 (10:15→14:45)
[2020-12-02] MEDS: SERTRALINE 25 MG TABLET PO SCH (21:40)
[2020-12-03] MEDS: LEVOTHYROXINE 112 MCG TABLET PO SCH (06:18)
[2020-12-03 07:25] LABS: Basophils % 0.3 % (0.0-0.8); Eosinophils # 0.1 10*3/uL (0.0-0.87); Eosinophils % 0.9 % (0.00-10.9); Hematocrit 36.6 VOL% (35.7-47.0); Hemoglobin 11.8 GM/DL (12.0-16.0); Immature Granulocytes % 0.6 %; Immature Granulocytes Absolute 0.08 #; Lymphocytes # 2.3 10*3/uL (1.4-4.0); Lymphocytes % 16.2 % (21.3-54.2); Mean Corpuscular HGB Conc 32.2 GM/DL (32-36); Mean Corpuscular Volume 90.4 FL (87-102); Mean Platelet Volume 8.9 FL (9.6-12.0); Monocytes % 13.5 % (1.7-12.7); Neutrophils % 68.5 % (38.7-73.9); Platelet Count 197 T/CUMM (130-400); Red Blood Count 4.05 MC/CUMM (3.8-5.5); Red Cell Distribution Width 16.1 % (9.3-17.3); White Blood Count 14.1 T/CUMM (4-12)
[2020-12-03 07:46] LABS: Albumin 2.2 G/DL (3.4-5.0); Bilirubin,Total 1.6 MG/DL (0.20-1.00); Calcium 7.5 MG/DL (8.5-10.1); Osmolality,Calculated 264.5 MOS/KG (273-304); Potassium 3.5 MMOL/L (3.5-5.1); Total Protein 5.7 G/DL (6.4-8.2)
[2020-12-03] MEDS: FERROUS SULFATE 325 MG TABLET PO SCH (09:03)
[2020-12-03] MEDS: ZINC SULFATE 220 MG CAPSULE PO SCH ×2 (09:03→22:32)
[2020-12-03] MEDS: THIAMINE 100 MG TABLET PO SCH ×2 (09:03→22:32)
[2020-12-03] MEDS: SPIRONOLACTONE 50 MG TABLET PO SCH ×2 (09:03→22:32)
[2020-12-03] MEDS: FUROSEMIDE 20 MG TABLET PO SCH (09:03)
[2020-12-03] MEDS: POTASSIUM CHLORIDE 20 MEQ TABLET PO PRN (09:04)
[2020-12-03] MEDS: LACTULOSE 20 GM/30 ML UDCUP PO SCH (09:04)
[2020-12-03] MEDS: PANTOPRAZOLE 40 MG TABLET PO SCH (09:04)
[2020-12-03] MEDS ORDERED: ONDANSETRON 4 MG/2 ML VIAL IM PRN (11:32)
[2020-12-03] MEDS: SODIUM CHLORIDE 0.9% 1,000 ML IV SCH ×2 (15:45)
[2020-12-03] MEDS: ONDANSETRON 4 MG/2 ML VIAL IV PRN (18:39)
[2020-12-03] MEDS: SERTRALINE 25 MG TABLET PO SCH (22:32)
[2020-12-04] MEDS: ONDANSETRON 4 MG/2 ML VIAL IV PRN (06:05)
[2020-12-04] MEDS: LEVOTHYROXINE 112 MCG TABLET PO SCH (06:29)
[2020-12-04] MEDS: SPIRONOLACTONE 50 MG TABLET PO SCH ×2 (09:32→21:31)
[2020-12-04] MEDS: THIAMINE 100 MG TABLET PO SCH ×2 (09:32→21:31)
[2020-12-04] MEDS: FERROUS SULFATE 325 MG TABLET PO SCH (09:32)
[2020-12-04] MEDS: ZINC SULFATE 220 MG CAPSULE PO SCH ×2 (09:33→21:31)
[2020-12-04] MEDS: PANTOPRAZOLE 40 MG TABLET PO SCH (09:33)
[2020-12-04] MEDS: FUROSEMIDE 20 MG TABLET PO SCH (09:33)
[2020-12-04] MEDS: LACTULOSE 20 GM/30 ML UDCUP PO SCH (09:44)
[2020-12-04 13:12] LABS: Bacteria,Urine Many /HPF (Few); Bilirubin,Urine Negative (Negative); Blood, Urine Negative (Negative); Glucose,Urine (UA) Negative (Negative); Ketones,Urine Negative (Negative); Nitrite,Urine Positive (Negative); Protein,Urine 30 MG/DL; RBC,Urine 6 /HPF (0-4); Squamous Epithelial Cell,Urine Few /HPF (0-10); Urine Appearance CLOUDY (Clear); Urine Color Amber (Yellow); Urine Specific Gravity 1.015 (1.001-1.035); Urine Urobilinogen < 2.0 EU/DL (0.2-1.0)
[2020-12-04] MEDS: SERTRALINE 25 MG TABLET PO SCH (21:31)
[2020-12-05 05:56] LABS: Basophils % 0.1 % (0.0-0.8); Hematocrit 34.5 VOL% (35.7-47.0); Hemoglobin 11.3 GM/DL (12.0-16.0); Immature Granulocytes % 1.4 %; Lymphocytes # 2.3 10*3/uL (1.4-4.0); Mean Corpuscular HGB Conc 32.8 GM/DL (32-36); Mean Corpuscular Volume 90.3 FL (87-102); Mean Platelet Volume 8.9 FL (9.6-12.0); Neutrophils % 78.5 % (38.7-73.9); Platelet Count 196 T/CUMM (130-400); Red Blood Count 3.82 MC/CUMM (3.8-5.5); Red Cell Distribution Width 17.4 % (9.3-17.3); White Blood Count 20.8 T/CUMM (4-12)
[2020-12-05 06:22] LABS: Eosinophils 1 % (0-10); Lymphocytes 2 % (20-55); Platelet Estimate Normal; Segmented Neutrophils 92 % (50-85); Total Cells Counted 100
[2020-12-05] MEDS: LEVOTHYROXINE 112 MCG TABLET PO SCH (06:37)
[2020-12-05 06:54] LABS: Albumin 1.9 G/DL (3.4-5.0); Bilirubin,Total 3.3 MG/DL (0.20-1.00); Calcium 7.3 MG/DL (8.5-10.1); Osmolality,Calculated 262.7 MOS/KG (273-304); Potassium 4.3 MMOL/L (3.5-5.1); Total Protein 5.2 G/DL (6.4-8.2)
[2020-12-05] MEDS: ONDANSETRON 4 MG/2 ML VIAL IV PRN ×2 (08:56→16:32)
[2020-12-05] MEDS: cefTRIAXone 1,000 MG in SODIUM CHLORIDE 0.9% 100 ML IV SCH (09:04)
[2020-12-05] MEDS: SPIRONOLACTONE 50 MG TABLET PO SCH ×2 (09:08→22:12)
[2020-12-05] MEDS: FUROSEMIDE 20 MG TABLET PO SCH (09:08)
[2020-12-05] MEDS: PANTOPRAZOLE 40 MG TABLET PO SCH (09:08)
[2020-12-05] MEDS: LACTULOSE 20 GM/30 ML UDCUP PO SCH (09:08)
[2020-12-05] MEDS: THIAMINE 100 MG TABLET PO SCH ×2 (09:09→22:11)
[2020-12-05] MEDS: FERROUS SULFATE 325 MG TABLET PO SCH (09:09)
[2020-12-05] MEDS: ZINC SULFATE 220 MG CAPSULE PO SCH ×2 (09:09→22:09)
[2020-12-05] MEDS: SODIUM CHLORIDE 0.9% 1,000 ML IV SCH ×2 (15:41)
[2020-12-05] MEDS: SERTRALINE 25 MG TABLET PO SCH (22:12)
[2020-12-06] MEDS: cefTRIAXone 1,000 MG in SODIUM CHLORIDE 0.9% 100 ML IV SCH (06:26)
[2020-12-06] MEDS: LEVOTHYROXINE 112 MCG TABLET PO SCH (06:29)
[2020-12-06] MEDS: ZINC SULFATE 220 MG CAPSULE PO SCH ×2 (08:36→21:39)
[2020-12-06] MEDS: FERROUS SULFATE 325 MG TABLET PO SCH (08:37)
[2020-12-06] MEDS: THIAMINE 100 MG TABLET PO SCH ×2 (08:37→21:24)
[2020-12-06] MEDS: PANTOPRAZOLE 40 MG TABLET PO SCH (08:38)
[2020-12-06] MEDS: FUROSEMIDE 40 MG TABLET PO SCH (08:38)
[2020-12-06] MEDS: SPIRONOLACTONE 50 MG TABLET PO SCH ×2 (08:38→21:25)
[2020-12-06] MEDS: LACTULOSE 20 GM/30 ML UDCUP PO SCH (09:13)
[2020-12-06] MEDS: SERTRALINE 25 MG TABLET PO SCH (21:24)
[2020-12-07] MEDS: LEVOTHYROXINE 112 MCG TABLET PO SCH (06:12)
[2020-12-07] MEDS: cefTRIAXone 1,000 MG in SODIUM CHLORIDE 0.9% 100 ML IV SCH (06:22)
[2020-12-07 08:04] LABS: Basophils % 0.2 % (0.0-0.8); Hemoglobin 11.1 GM/DL (12.0-16.0); Immature Granulocytes % 0.9 %; Lymphocytes # 2.2 10*3/uL (1.4-4.0); Lymphocytes % 9.8 % (21.3-54.2); Mean Corpuscular HGB Conc 33.6 GM/DL (32-36); Mean Corpuscular Volume 90.7 FL (87-102); Mean Platelet Volume 8.8 FL (9.6-12.0); Monocytes % 11.7 % (1.7-12.7); Neutrophils % 77.4 % (38.7-73.9); Platelet Count 175 T/CUMM (130-400); Red Blood Count 3.64 MC/CUMM (3.8-5.5); Red Cell Distribution Width 17.6 % (9.3-17.3)
[2020-12-07 08:16] LABS: INR 1.7; PT Patient Result 17.8 SECS (10.5-12.0)
[2020-12-07 08:21] LABS: Albumin 2.1 G/DL (3.4-5.0); Bilirubin,Total 1.7 MG/DL (0.20-1.00); Calcium 7.4 MG/DL (8.5-10.1); Osmolality,Calculated 266.7 MOS/KG (273-304); Potassium 4.4 MMOL/L (3.5-5.1); Total Protein 5.2 G/DL (6.4-8.2)
[2020-12-07 08:31] LABS: Anisocytosis 2+; Band Neutrophils 1 % (0-10); Burr Cells Few; Lymphocytes 6 % (20-55); Platelet Estimate Normal; Poikilocytosis Slight; Segmented Neutrophils 80 % (50-85); Target Cells Few; Total Cells Counted 100
[2020-12-07 08:32] LABS: Macrocytosis 1+
[2020-12-07] MEDS: LACTULOSE 20 GM/30 ML UDCUP PO SCH (09:06)
[2020-12-07] MEDS: FERROUS SULFATE 325 MG TABLET PO SCH ×2 (09:09→14:50)
[2020-12-07] MEDS: SPIRONOLACTONE 50 MG TABLET PO SCH (09:09)
[2020-12-07] MEDS: ZINC SULFATE 220 MG CAPSULE PO SCH ×2 (09:09→14:49)
[2020-12-07] MEDS: THIAMINE 100 MG TABLET PO SCH ×2 (09:10→14:51)
[2020-12-07] MEDS: FUROSEMIDE 40 MG TABLET PO SCH (09:10)
[2020-12-07] MEDS: PANTOPRAZOLE 40 MG TABLET PO SCH (09:10)
[2020-12-07] MEDS: SODIUM CHLORIDE 0.9% 1,000 ML IV SCH ×3 (10:17→16:14)
[2020-12-07] MEDS: MORPHINE 2 MG/1 ML SYRINGE IV PRN ×2 (16:24→19:50)
[2020-12-08] MEDS: MORPHINE 2 MG/1 ML SYRINGE IV PRN (02:11)
[2020-12-08] MEDS ORDERED: LORazepam 2 MG/1 ML VIAL IV PRN (02:53)
[2020-12-08 05:15] VITALS: BP 80/42
== END 2020-12-08 05:22 | disposition expired | DRG 441 ==
LOC: N.EDINP 18:04 → N.ED 18:04 → N.EDINP 11-27 09:30 → N.TELEN 11-27 09:54
PROVIDERS: ADMIT Family Medicine; ATTEND Family Medicine